=== PATIENT | female | born 1975 | race Caucasian/White ===

== ENCOUNTER → 2023-06-18 | Outpatient (CLI) | payer MEDICAID, SELFPAY ==
[2023-06-18 15:12] LABS: Absolute Lymphocyte Count 7.75 X10^3/uL (0.83-4.51); Absolute Neutrophil Count 14.3 X10^3/uL (2.0-7.7); Basophil# 0.14 X10^3/uL; Basophil% 0.6 % (0-1); Eosinophils% 1.2 % (0-5); Hematocrit 30.2 % (37-47); Hemoglobin 8.1 g/dL (12.0-15.0); Lymphocyte # 7.75 X10^3/ul (0.83-4.51); Lymphocyte % 32.3 % (19-41); Mean Corp Hgb Conc 26.8 g/dL (32-36); Mean Corpuscular Hgb 17.9 pg (27.0-32.0); Mean Corpuscular Volume 66.8 fL (81-99); Mean Platelet Vol. 9.2 fl (6.2-12.0); Monocyte# 1.37 X10^3/uL; Monocyte% 5.7 % (0-10); NRBC Flagged by Analyzer 0.5 % (0-5); Neutrophil # 14.27 X10^3/uL (2.7-7.7); Neutrophil % 59.5 % (47-70); POSITIVE COUNT YES; POSITIVE DIFFERENTIAL YES; POSITIVE MORPHOLOGY YES; RBC Distribution Width CV 22.9 % (11.6-14.6); RBC Distribution Width SD 52.2 fl (35.1-43.9); Red Blood Count 4.52 M/mm3 (4.2-5.4)
[2023-06-18 15:19] LABS: Differential Indicated SCAN CRITERIA MET; Platelet Count 1133 K/mm3 (150-450)
[2023-06-18 15:53] LABS: Differential Comment SEE COMMENTS
[2023-06-18 15:54] LABS: Anisocytosis 1+; Atypical Lymphocyte 1+ %; Hypochromasia 1+; Microcytosis 1+; Platelet Estimate MKD INC (ADEQ); Red Cell Morphology N CHROM NORMAL (NORM C&C)
[2023-06-18 15:55] LABS: Ovalocyte RARE
[2023-06-18 16:01] LABS: Vitamin D,25 Hydroxy 34.4 ng/mL
[2023-06-18 16:05] LABS: Hemoglobin A1c 7.4 % (3.8-5.6)
[2023-06-18 17:44] LABS: ALB/GLOB Ratio 0.8 RATIO (0.9-2.4); AST(SGOT) 22 U/L (15-37); Alanine Aminotransfer ALT/SGPT 19 U/L (13-56); Albumin, Serum 3.3 g/dL (3.2-5.0); Alkaline Phosphatase 139 U/L (45-117); Anion Gap 9 (5-15); BUN 13 mg/dL (7-18); BUN/Creat Ratio 16.3 RATIO (10-20); Calcium,Total 8.9 mg/dL (8.5-10.1); Chloride 101 mmol/L (98-107); Cholesterol 156 mg/dL (200); EST Glomerular Filtration Rate 81 mL/min (>60); Est Glom Filt Rate - Afr Amer 98 mL/min (>60); Globulin 4.4 g/dL (2.2-4.2); Glucose 159 mg/dL (74-106); High Density Lipoprotein 42 mg/dL; Potassium 4.8 mmol/L (3.5-5.1); Protein, Total 7.7 g/dL (6.4-8.2); Sodium Level 136 mmol/L (136-145); Triglycerides 210 mg/dL; Very Low Density Lipoprotein 42 mg/dL (5-40)
[2023-06-22 08:11] LABS: Pathologist Review Reviewed
== END | disposition home or self-care (01) ==
LOC: MTLAB 12:02
PROVIDERS: PCP Family Medicine; Referring Provider Family Medicine; Visit Provider Family Medicine
DX: E11.40 Type 2 diabetes mellitus with diabetic neuropathy, unspecified (principal); I48.91 Unspecified atrial fibrillation; G62.9 Polyneuropathy, unspecified
CPT/HCPCS: 36415; 80053; 80061; 82306; 83036; 85025

== ENCOUNTER → 2023-10-14 | Outpatient (CLI) | payer MEDICAID, SELFPAY ==
[2023-10-14 17:45] LABS: Absolute Neutrophil Count 10.4 X10^3/uL (2.0-7.7); Basophil% 0.5 % (0-1); Eosinophil# 0.38 X10^3/uL; Eosinophils% 1.8 % (0-5); Hematocrit 33.7 % (37-47); Hemoglobin 9.8 g/dL (12.0-15.0); Lymphocyte % 42.6 % (19-41); Mean Corp Hgb Conc 29.1 g/dL (32-36); Mean Corpuscular Hgb 21.2 pg (27.0-32.0); Mean Corpuscular Volume 72.8 fL (81-99); Mean Platelet Vol. 9.6 fl (6.2-12.0); Monocyte# 1.12 X10^3/uL; Monocyte% 5.3 % (0-10); NRBC Flagged by Analyzer 0.1 % (0-5); Neutrophil # 10.44 X10^3/uL (2.7-7.7); Neutrophil % 49.4 % (47-70); POSITIVE DIFFERENTIAL YES; POSITIVE MORPHOLOGY YES; Platelet Count 724 K/mm3 (150-450); RBC Distribution Width CV 29.7 % (11.6-14.6); RBC Distribution Width SD 73.2 fl (35.1-43.9); Red Blood Count 4.63 M/mm3 (4.2-5.4); White Blood Count 21.1 K/mm3 (4.4-11.0)
[2023-10-14 17:48] LABS: Differential Indicated SCAN CRITERIA MET
[2023-10-14 18:03] LABS: ALB/GLOB Ratio 0.6 RATIO (0.9-2.4); AST(SGOT) 21 U/L (15-37); Alanine Aminotransfer ALT/SGPT 17 U/L (13-56); Albumin, Serum 3.1 g/dL (3.2-5.0); Alkaline Phosphatase 134 U/L (45-117); Anion Gap 8 (5-15); BUN 7 mg/dL (7-18); BUN/Creat Ratio 10.4 RATIO (10-20); Calcium,Total 8.9 mg/dL (8.5-10.1); Chloride 99 mmol/L (98-107); Creatinine, Serum 0.68 mg/dL (0.55-1.02); EST Glomerular Filtration Rate 98 mL/min (>60); Est Glom Filt Rate - Afr Amer 119 mL/min (>60); Ferritin 21 ng/mL (8-252); Globulin 4.8 g/dL (2.2-4.2); Glucose 168 mg/dL (74-106); Hemoglobin A1c 7.6 % (3.8-5.6); Iron 36 ug/dL (50-170); Iron Binding Capacity,Total 415 ug/dL (250-450); PERCENT IRON SATURATION 8.7 % (15.0-55.0); Potassium 3.6 mmol/L (3.5-5.1); Protein, Total 7.9 g/dL (6.4-8.2); Sodium Level 134 mmol/L (136-145); Thyroid Stim Hormone (TSH) 3.23 uIU/mL (0.358-3.74)
[2023-10-14 18:43] LABS: Atypical Lymphocyte 1+ %; Differential Comment SEE COMMENTS
[2023-10-14 18:44] LABS: Anisocytosis 1+; Microcytosis 1+; Platelet Estimate MKD INC (ADEQ); Red Cell Morphology N CHROM NORMAL (NORM C&C)
== END | disposition home or self-care (01) ==
LOC: MFPLAB 16:55
PROVIDERS: PCP Family Medicine; Visit Provider Family Medicine
DX: R63.5 Abnormal weight gain (principal); E11.40 Type 2 diabetes mellitus with diabetic neuropathy, unspecified; Z86.2 Personal history of diseases of the blood and blood-forming organs and certain disorders involving the immune mechanism
CPT/HCPCS: 36415; 80053; 82728; 83036; 83540; 83550; 84443; 85025

== ENCOUNTER 2024-07-11 19:15 | Emergency (ER) | payer MEDICAID, SELFPAY ==
[2024-07-11 19:17] VITALS: BP 188/94; PULSE 84; RESP 20; TEMP 36.9; O2SAT 95
[2024-07-11 19:19] VITALS: BP 188/94; PULSE 84; RESP 20; TEMP 36.9; O2SAT 95
[2024-07-11 22:56] VITALS: BP 162/82; PULSE 90; RESP 19; O2SAT 99
--- NOTE | 2024-07-11 22:57 | ED.RN ---
delay in vital signs due to busy triage
[2024-07-11 23:00] VITALS: BP 162/82; PULSE 82; RESP 16; TEMP 36.9; O2SAT 98
[2024-07-11 23:31] VITALS: BMI 51.3
[2024-07-12] VITALS (7 sets, daily range): BP systolic 113–159; BP diastolic 49–62; PULSE 78–90; RESP 14–18; TEMP 36.6–36.8; O2SAT 97–99
--- NOTE | 2024-07-12 00:03 | EDS_ITS ---
HPI <Dr. González Barker MD - Last Filed: 07/16/24 10:15> History of Present Illness Chief Complaint: Complaint Detail of Chief Complaint: Fever and chills with urinary tract infection Informant: patient Onset/Context/Timing Onset: Days Context: Sudden Onset Timing: Continuous Quality: Dysuria, frequency lower abdominal pain with fever greater than 101.0 ? F Location: lower abdomen Current Severity: Mild Maximum Severity: Moderate Worsened by: Movement Relieved by: Nothing Associated Symptoms Associated Symptoms: nausea Narrative Narrative: Patient is a 48-year-old woman. This is her fourth UTI in 4 months. She presents with dysuria, frequency back pain and temperature of 101.0 ?F. She has had a colonoscopy. She does not recall whether she had diverticulosis or not. She denies pneumaturia. She does endorse nausea. She has had no vomiting or diarrhea. There is no history of trauma. She has chronic respiratory failure on oxygen at by nasal cannula at 4 L/min. She has allergy to sulfa. She denies allergies to pain medicine. She does not want any opiates since she has history of drug addiction. She requested Toradol. Patient has history of COVID x 3. She has respiratory failure due to pulmonary embolus and reason for chronic oxygen. 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 Prior similar symptoms: Yes Recent Illness/Hospitalization: Yes [facility] <Dr. González Barker MD - Last Filed: 07/16/24 10:15> [facility] Medical History Wheelchair dependence Supplemental oxygen dependent History of COVID-19 Heart valve vegetation Hx of pulmonary embolus Home Medications ?Medication ?Instructions ?Recorded ?Last Taken ?Type alprazolam 0.5 mg tablet 0.5 - 1 mg PO DAILY PRN anxiety 07/11/24 Unknown History apixaban 5 mg tablet (Eliquis) 5 mg PO BID 07/11/24 Unknown History atorvastatin 20 mg tablet 20 mg PO QHS 07/11/24 Unknown History cefdinir 300 mg capsule 300 mg PO BID 07/11/24 Unknown History escitalopram oxalate 10 mg tablet 20 mg PO QDAY 07/11/24 Unknown History (Lexapro) ferrous sulfate 325 mg (65 mg 325 mg PO QODAY 07/11/24 Unknown History iron) tablet (FeroSul) gabapentin 600 mg tablet 300 mg PO TID 07/11/24 Unknown History metformin 1,000 mg tablet 1,000 mg PO BID 07/11/24 Unknown History metoprolol succinate 25 mg 25 mg PO BID 07/11/24 Unknown History tablet,extended release 24 hr omeprazole 40 mg capsule,delayed 40 mg PO DAILY 07/11/24 Unknown History release ondansetron HCl 4 mg tablet 4 mg PO TID PRN 07/11/24 Unknown History terbinafine HCl 250 mg tablet 250 mg PO DAILY 07/11/24 Unknown History tizanidine 4 mg capsule (Zanaflex) 4 mg PO QHS 07/11/24 Unknown History Allergy/AdvReac Type Severity Reaction Status Date / Time Sulfa (Sulfonamide Allergy Severe Anaphylaxis Verified 07/11/24 19:16 Antibiotics) metoclopramide (From Reglan) AdvReac Intermediate Other Verified 07/11/24 19:16 prochlorperazine (From AdvReac Intermediate Other Verified 07/11/24 19:16 Compazine) Surgical History Hx of appendectomy Hx of splenectomy Social History Smoking Status: Current every day smoker tobacco type: e-cigarettes ROS <Dr. González Barker MD - Last Filed: 07/16/24 10:15> ROS ED Constitutional Constitutional ED: Reports chills and fever(s); Denies subjective or sweats Eyes Eyes: Denies blurry vision or change in vision ENT ENT ED: Denies rhinorrhea or sore throat Cardiovascular Cardiovascular: Denies chest pain or palpitations Respiratory/Chest Respiratory/Chest: Denies cough, dyspnea or dyspnea on exertion Gastrointestinal Gastrointestinal: Reports abdominal pain and nausea; Denies diarrhea or vomiting Genitourinary Genitourinary ED: Reports dysuria and urinary frequency; Denies hematuria Musculoskeletal Musculoskeletal: Reports back pain; Denies arthralgias, myalgias or neck pain Integumentary Denies abscess, Abrasions or rash Neurologic Neurologic: Denies headache(s) or paresthesias Endocrine Endocrinology: Denies cold intolerance or heat intolerance Hematologic/Lymphatic Hematologic/Lymphatic: Reports as per HPI EXAM <Dr. González Barker MD - Last Filed: 07/16/24 10:15> Physical Exam Const Vital Signs: 07/11/24 19:17 07/11/24 19:19 07/11/24 22:56 Temperature 98.5 F 98.5 F Temperature Source Oral Oral Pulse Rate 84 84 90 Respiratory Rate 20 H 20 H 19 H Blood Pressure 188/94 H 188/94 H 162/82 H Blood Pressure Mean 125 125 108 Pulse Ox 95 95 99 Oxygen Delivery Method Nasal Cannula Nasal Cannula Nasal Cannula Oxygen Flow Rate (L/min) 4 4 4 07/11/24 23:00 07/12/24 00:00 07/12/24 01:00 Temperature 98.5 F 98.2 F 97.8 F Temperature Source Oral Oral Oral Pulse Rate 82 85 86 Respiratory Rate 16 16 18 Blood Pressure 162/82 H 159/60 H 126/53 H Blood Pressure Mean 108 93 77 Pulse Ox 98 98 98 Oxygen Delivery Method Nasal Cannula Nasal Cannula Nasal Cannula Oxygen Flow Rate (L/min) 4 3 3 07/12/24 02:00 07/12/24 04:00 07/12/24 06:00 Temperature Temperature Source Pulse Rate 86 78 86 Respiratory Rate 14 18 18 Blood Pressure 113/49 L 114/54 L 117/52 L Blood Pressure Mean 70 74 73 Pulse Ox 98 98 97 Oxygen Delivery Method Room Air Room Air Nasal Cannula Oxygen Flow Rate (L/min) 3 07/12/24 08:24 Temperature Temperature Source Pulse Rate 86 Respiratory Rate 16 Blood Pressure 138/58 H Blood Pressure Mean 84 Pulse Ox 99 Oxygen Delivery Method Room Air Oxygen Flow Rate (L/min) Positive well nourished and well developed Constitutional Narrative: Patient appears uncomfortable. BMI is 51.3. General Appearance ED: well developed and pallor HEENT Reports dry mucous membranes HEENT Narrative: Head is atraumatic, cephalic. Ears normal. Nares patent. Posterior pharynx is normal. Mouth ED: Yes dry mucous membranes Mouth: dry mucous membranes Eyes PERRL and EOMs intact bilaterally General Eye ED: Negative for pale conjunctiva or scleral icterus Neck no lymphadenopathy, supple and no JVD Chest Wall inspection of chest normal and palpation of chest normal Resp normal respiratory effort and clear to auscultation bilaterally Cardio regular rate, regular rhythm, S1 normal heart sound, S2 normal heart sound and no murmurs GI normal to inspection, nondistended, normoactive bowel sounds, non-distended and no masses; Negative for non-tender or hepatosplenomegaly Auscultation: hypoactive bowel sounds Palpation: soft and tender RLQ and suprapubic Back/Spine General Back: CVA tenderness bilateral Thoracic Spine / Upper Back: Negative for thoracic spinal tenderness Lumbar Spine / Lower Back: Negative for lumbar spinal tenderness Extremity General Extremety ED: Negative for tenderness Neuro oriented x3 and CN's II-XII intact bilaterally Sensorium / Orientation: alert Psych mental status grossly normal Skin no rashes or lesions noted, no wounds and skin turgor normal General Skin Exam: pallor; Negative for jaundice <Dr. Mikel Valdivia MD - Last Filed: 07/12/24 03:22> Physical Exam Const Vital Signs: 07/11/24 19:17 07/11/24 19:19 07/11/24 22:56 Temperature 98.5 F 98.5 F Temperature Source Oral Oral Pulse Rate 84 84 90 Respiratory Rate 20 H 20 H 19 H Blood Pressure 188/94 H 188/94 H 162/82 H Blood Pressure Mean 125 125 108 Pulse Ox 95 95 99 Oxygen Delivery Method Nasal Cannula Nasal Cannula Nasal Cannula Oxygen Flow Rate (L/min) 4 4 4 07/11/24 23:00 07/12/24 00:00 07/12/24 01:00 Temperature 98.5 F 98.2 F 97.8 F Temperature Source Oral Oral Oral Pulse Rate 82 85 86 Respiratory Rate 16 16 18 Blood Pressure 162/82 H 159/60 H 126/53 H Blood Pressure Mean 108 93 77 Pulse Ox 98 98 98 Oxygen Delivery Method Nasal Cannula Nasal Cannula Nasal Cannula Oxygen Flow Rate (L/min) 4 3 3 07/12/24 02:00 07/12/24 04:00 07/12/24 06:00 Temperature Temperature Source Pulse Rate 86 78 86 Respiratory Rate 14 18 18 Blood Pressure 113/49 L 114/54 L 117/52 L Blood Pressure Mean 70 74 73 Pulse Ox 98 98 97 Oxygen Delivery Method Room Air Room Air Nasal Cannula Oxygen Flow Rate (L/min) 3 07/12/24 08:24 Temperature Temperature Source Pulse Rate 86 Respiratory Rate 16 Blood Pressure 138/58 H Blood Pressure Mean 84 Pulse Ox 99 Oxygen Delivery Method Room Air Oxygen Flow Rate (L/min) <Dr. Jim Ha DO - Last Filed: 07/12/24 08:47> Physical Exam Const Vital Signs: 07/11/24 19:17 07/11/24 19:19 07/11/24 22:56 Temperature 98.5 F 98.5 F Temperature Source Oral Oral Pulse Rate 84 84 90 Respiratory Rate 20 H 20 H 19 H Blood Pressure 188/94 H 188/94 H 162/82 H Blood Pressure Mean 125 125 108 Pulse Ox 95 95 99 Oxygen Delivery Method Nasal Cannula Nasal Cannula Nasal Cannula Oxygen Flow Rate (L/min) 4 4 4 07/11/24 23:00 07/12/24 00:00 07/12/24 01:00 Temperature 98.5 F 98.2 F 97.8 F Temperature Source Oral Oral Oral Pulse Rate 82 85 86 Respiratory Rate 16 16 18 Blood Pressure 162/82 H 159/60 H 126/53 H Blood Pressure Mean 108 93 77 Pulse Ox 98 98 98 Oxygen Delivery Method Nasal Cannula Nasal Cannula Nasal Cannula Oxygen Flow Rate (L/min) 4 3 3 07/12/24 02:00 07/12/24 04:00 07/12/24 06:00 Temperature Temperature Source Pulse Rate 86 78 86 Respiratory Rate 14 18 18 Blood Pressure 113/49 L 114/54 L 117/52 L Blood Pressure Mean 70 74 73 Pulse Ox 98 98 97 Oxygen Delivery Method Room Air Room Air Nasal Cannula Oxygen Flow Rate (L/min) 3 07/12/24 08:24 Temperature Temperature Source Pulse Rate 86 Respiratory Rate 16 Blood Pressure 138/58 H Blood Pressure Mean 84 Pulse Ox 99 Oxygen Delivery Method Room Air Oxygen Flow Rate (L/min) [facility] <Dr. González Barker MD - Last Filed: 07/16/24 10:15> [facility] Narrative Medical decision making narrative: Need to evaluate for complicated UTI, pyelonephritis, diverticular abscess with possible fistula since she has had multiple recurrent urinary tract infections. To evaluate this CBC, BMP UA was obtained. Cath urine was ordered. CT of the abdomen was obtained to assess for abscess. History & Record Review Additional record(s) reviewed:: Prior inpatient record (Records from outside facility indicates patient had endocarditis from dental infection requiring extraction of teeth while she was hospitalized. She also was admitted for multiple pulmonary embolus due to COVID.) and No prior records Lab Data Attestation: I reviewed the patient's lab results. Lab results narrative: Electrolyte panel reveals mild hyponatremia and hypochloremia. Glucose is elevated to 51 with a normal CO2 anion gap. Lactate is elevated 2.5. Liver enzymes are unremarkable. Patient's lactic acidosis could be due to metformin. Labs: Laboratory Results - last 24 hr 07/11/24 07/12/24 07/12/24 23:50 00:04 04:14 WBC 25.5 H RBC 4.21 Hgb 11.1 L Hct 35.0 L MCV 83.1 MCH 26.4 L MCHC 31.7 L RDW Std Deviation 45.6 H RDW Coeff of Andrés 15.0 H Plt Count 592 H MPV 9.8 Immature Gran % (Auto) 0.600 Neut % (Auto) 50.6 Lymph % (Auto) 40.9 [place] % (Auto) 6.4 Eos % (Auto) 1.1 Baso % (Auto) 0.4 Absolute Neuts (auto) 12.9 H Absolute Lymphs (auto) 10.42 H Nucleated RBC % 0.1 Differential Comment SCANNED Diff Path Review May foll Hypersegmented Neuts 1+ H Reactive Lymphocytes 3+ Platelet Estimate SLT INC Polychromasia 1+ Anisocytosis 1+ Sodium 131 L Potassium 3.8 Chloride 94 L Carbon Dioxide 27.0 Anion Gap 10 BUN 10 Creatinine 0.73 Estim Creat Clear Calc 131.23 Est GFR (MDRD) Af Amer 108 Est GFR (MDRD) Non-Af 89 BUN/Creatinine Ratio 13.7 Glucose 251 H Lactic Acid 2.5 H* 1.7 Calcium 8.8 Total Bilirubin 0.40 AST 29 ALT 15 Alkaline Phosphatase 124 H Total Protein 7.8 Albumin 3.2 Globulin 4.6 H Albumin/Globulin Ratio 0.7 L Urine Color Yellow Urine Clarity Clear Urine pH 6.0 Ur Specific [place] 1.015 Urine Protein 30 H Urine Glucose (UA) Normal Urine Ketones 5 H Urine Occult Blood Negative Urine Nitrite Negative Urine Bilirubin 1 H Urine Urobilinogen 1 H Ur Leukocyte Esterase 25 H Urine RBC 0 SEEN Urine WBC 5-10 SEEN Ur Squamous Epith Cells 5-10 SEEN Urine Bacteria RARE Urine Mucus 4+ Radiography Diagnostic Testing: Clinical Impression(s) from Imaging Studies Transvaginal US 07/12/24 03:18 IMPRESSION: Normal-appearing uterus. Nonvisualized ovaries. Electronically Signed: Eloy Nickerson MD at 8:27 EST , Abdomen/Pelvis CT 07/12/24 23:23 IMPRESSION: 1. No acute intra-abdominal abnormality 2. Fatty infiltration of the liver. 3. Shotty periportal lymph nodes. Electronically Signed: Jose Gannon MD at 1:43 EST , Treatment and Re-Evaluation :: Patient's history physical was discussed with the evening physician. Dispositio n to be made after CT of the abdomen pelvis with has been performed and interpreted by radiologist. Nurse was reminded that straight cath was ordered to obtain urine specimen. <Dr. Mikel Valdivia MD - Last Filed: 07/12/24 03:22> [facility] Lab Data Labs: Laboratory Results - last 24 hr 07/11/24 07/12/24 07/12/24 23:50 00:04 04:14 WBC 25.5 H RBC 4.21 Hgb 11.1 L Hct 35.0 L MCV 83.1 MCH 26.4 L MCHC 31.7 L RDW Std Deviation 45.6 H RDW Coeff of Andrés 15.0 H Plt Count 592 H MPV 9.8 Immature Gran % (Auto) 0.600 Neut % (Auto) 50.6 Lymph % (Auto) 40.9 [place] % (Auto) 6.4 Eos % (Auto) 1.1 Baso % (Auto) 0.4 Absolute Neuts (auto) 12.9 H Absolute Lymphs (auto) 10.42 H Nucleated RBC % 0.1 Differential Comment SCANNED Diff Path Review May foll Hypersegmented Neuts 1+ H Reactive Lymphocytes 3+ Platelet Estimate SLT INC Polychromasia 1+ Anisocytosis 1+ Sodium 131 L Potassium 3.8 Chloride 94 L Carbon Dioxide 27.0 Anion Gap 10 BUN 10 Creatinine 0.73 Estim Creat Clear Calc 131.23 Est GFR (MDRD) Af Amer 108 Est GFR (MDRD) Non-Af 89 BUN/Creatinine Ratio 13.7 Glucose 251 H Lactic Acid 2.5 H* 1.7 Calcium 8.8 Total Bilirubin 0.40 AST 29 ALT 15 Alkaline Phosphatase 124 H Total Protein 7.8 Albumin 3.2 Globulin 4.6 H Albumin/Globulin Ratio 0.7 L Urine Color Yellow Urine Clarity Clear Urine pH 6.0 Ur Specific [place] 1.015 Urine Protein 30 H Urine Glucose (UA) Normal Urine Ketones 5 H Urine Occult Blood Negative Urine Nitrite Negative Urine Bilirubin 1 H Urine Urobilinogen 1 H Ur Leukocyte Esterase 25 H Urine RBC 0 SEEN Urine WBC 5-10 SEEN Ur Squamous Epith Cells 5-10 SEEN Urine Bacteria RARE Urine Mucus 4+ Radiography Diagnostic Testing: Clinical Impression(s) from Imaging Studies Transvaginal US 07/12/24 03:18 IMPRESSION: Normal-appearing uterus. Nonvisualized ovaries. Electronically Signed: Eloy Nickerson MD at 8:27 EST , Abdomen/Pelvis CT 07/12/24 23:23 IMPRESSION: 1. No acute intra-abdominal abnormality 2. Fatty infiltration of the liver. 3. Shotty periportal lymph nodes. Electronically Signed: Jose Gannon MD at 1:43 EST , Treatment and Re-Evaluation Comments:: Patient turned over to me at shift change. Her CT and urine resulted, as well as her CBC. I reviewed all of these. This includes the CT images as well as the report which I agree with. It is basically normal. However her white blood count is over 25, but she has always had white blood count readings in the 20s. Her urine does not appear consistent with infection. I sat and discussed with the patient for quite a while. She states she had of splenectomy and also had a recent positive INES and is scheduled to follow-up with a store grocery merchandiser, her white blood counts have been high most of the time and may be related to 1 or more of these. Alternatively, it could be elevated due to an acute infection especially because she was having fevers. Initially I was thinking her urine could be a false negative with acute urinary symptoms and fevers, however my thoughts on this changed when she told me more details about her symptoms which have basically been there for a month or 2, she is currently on her third course of antibiotics for the same urinary infection, currently on cefdinir and before that she was on nitrofurantoin and Augmentin, and with her urinalysis appearing unremarkable, I think it is less likely to be a false negative. She states the Toradol really helped her pain she is asking for some more, it has been about 3-1/2 hours so I am going to give her another half dose. Her pain is low right lower quadrant/suprapubic. There is no inflammation in the pelvis on the CT, but we are considering pelvic etiologies such as tubo- ovarian abscess, less likely to be ovarian torsion given the fever and chills, and the fact that she has had this pain for over a week although it got worse tonight, and ultrasound is not here right now but I offered to have her stay for the next for 5 hours until ultrasound arrives in the morning and have that performed. She is amenable to that. <Dr. Jim Ha, DO - Last Filed: 07/12/24 08:47> [facility] Lab Data Labs: Laboratory Results - last 24 hr 07/11/24 07/12/24 07/12/24 23:50 00:04 04:14 WBC 25.5 H RBC 4.21 Hgb 11.1 L Hct 35.0 L MCV 83.1 MCH 26.4 L MCHC 31.7 L RDW Std Deviation 45.6 H RDW Coeff of Andr[place] 15.0 H Plt Count 592 H MPV 9.8 Immature Gran % (Auto) 0.600 Neut % (Auto) 50.6 Lymph % (Auto) 40.9 [place] % (Auto) 6.4 Eos % (Auto) 1.1 Baso % (Auto) 0.4 Absolute Neuts (auto) 12.9 H Absolute Lymphs (auto) 10.42 H Nucleated RBC % 0.1 Differential Comment SCANNED Diff Path Review May foll Hypersegmented Neuts 1+ H Reactive Lymphocytes 3+ Platelet Estimate SLT INC Polychromasia 1+ Anisocytosis 1+ Sodium 131 L Potassium 3.8 Chloride 94 L Carbon Dioxide 27.0 Anion Gap 10 BUN 10 Creatinine 0.73 Estim Creat Clear Calc 131.23 Est GFR (MDRD) Af Amer 108 Est GFR (MDRD) Non-Af 89 BUN/Creatinine Ratio 13.7 Glucose 251 H Lactic Acid 2.5 H* 1.7 Calcium 8.8 Total Bilirubin 0.40 AST 29 ALT 15 Alkaline Phosphatase 124 H Total Protein 7.8 Albumin 3.2 Globulin 4.6 H Albumin/Globulin Ratio 0.7 L Urine Color Yellow Urine Clarity Clear Urine pH 6.0 Ur Specific [place] 1.015 Urine Protein 30 H Urine Glucose (UA) Normal Urine Ketones 5 H Urine Occult Blood Negative Urine Nitrite Negative Urine Bilirubin 1 H Urine Urobilinogen 1 H Ur Leukocyte Esterase 25 H Urine RBC 0 SEEN Urine WBC 5-10 SEEN Ur Squamous Epith Cells 5-10 SEEN Urine Bacteria RARE Urine Mucus 4+ Radiography Diagnostic Testing: Clinical Impression(s) from Imaging Studies Transvaginal US 07/12/24 03:18 IMPRESSION: Normal-appearing uterus. Nonvisualized ovaries. Electronically Signed: Eloy Nickerson MD at 8:27 EST , Abdomen/Pelvis CT 07/12/24 23:23 IMPRESSION: 1. No acute intra-abdominal abnormality 2. Fatty infiltration of the liver. 3. Shotty periportal lymph nodes. Electronically Signed: Jose Gannon MD at 1:43 EST , Treatment and Re-Evaluation Comments:: Patient turned over to me at shift change. Her CT and urine resulted, as well as her CBC. I reviewed all of these. This includes the CT images as well as the report which I agree with. It is basically normal. However her white blood count is over 25, but she has always had white blood count readings in the 20s. Her urine does not appear consistent with infection. I sat and discussed with the patient for quite a while. She states she had of splenectomy and also had a recent positive INES and is scheduled to follow-up with a store grocery merchandiser, her white blood counts have been high most of the time and may be related to 1 or more of these. Alternatively, it could be elevated due to an acute infection especially because she was having fevers. Initially I was thinking her urine could be a false negative with acute urinary symptoms and fevers, however my thoughts on this changed when she told me more details about her symptoms which have basically been there for a month or 2, she is currently on her third course of antibiotics for the same urinary infection, currently on cefdinir and before that she was on nitrofurantoin and Augmentin, and with her urinalysis appearing unremarkable, I think it is less likely to be a false negative. She states the Toradol really helped her pain she is asking for some more, it has been about 3-1/2 hours so I am going to give her another half dose. Her pain is low right lower quadrant/suprapubic. There is no inflammation in the pelvis on the CT, but we are considering pelvic etiologies such as tubo- ovarian abscess, less likely to be ovarian torsion given the fever and chills, and the fact that she has had this pain for over a week although it got worse tonight, and ultrasound is not here right now but I offered to have her stay for the next for 5 hours until ultrasound arrives in the morning and have that performed. She is amenable to that. Care of the patient was turned over to me pending ultrasound results. Patient went for pelvic ultrasound. There is no acute abnormality noted. The ovaries were not visualized. Patient was advised of her findings. Patient is resting comfortably on reevaluation. Patient was instructed to follow-up with her primary care physician in 3 to 5 days for further evaluation. Patient understood and was agreeable with the plan. All questions were answered. Discharge Plan Triage Chief Complaint: Complaint ED Provider: González Barker Dx/Rx/DC Orders Clinical Impression: Pelvic pain, Elevated blood pressure reading Instructions: ED Pelvic Pain, Unknown Cause Prescriptions: No Action tizanidine [Zanaflex] 4 mg capsule 4 mg PO QHS ferrous sulfate [FeroSul] 325 mg (65 mg iron) tablet 325 mg PO QODAY alprazolam 0.5 mg tablet 0.5 - 1 mg PO DAILY PRN (Reason: anxiety) cefdinir 300 mg capsule 300 mg PO BID terbinafine HCl 250 mg tablet 250 mg PO DAILY Eliquis 5 mg tablet 5 mg PO BID escitalopram oxalate [Lexapro] 10 mg tablet 20 mg PO QDAY gabapentin 600 mg tablet 300 mg PO TID ondansetron HCl 4 mg tablet 4 mg PO TID PRN omeprazole 40 mg capsule,delayed release(DR/EC) 40 mg PO DAILY metformin 1,000 mg tablet 1,000 mg PO BID metoprolol succinate 25 mg tablet extended release 24 hr 25 mg PO BID atorvastatin 20 mg tablet 20 mg PO QHS Primary Care Provider: Kerwin Pillai Referrals: Kerwin Pillai MD [Primary Care Provider] - 3-5 Days Print Language: Malagasy Disposition Disposition: Home, Self Care Discharge Date/Time: 07/12/24 08:58
[2024-07-12 00:09] LABS: Absolute Lymphocyte Count 10.42 X10^3/uL (0.83-4.51); Absolute Neutrophil Count 12.9 X10^3/uL (2.0-7.7); Basophil# 0.11 X10^3/uL; Basophil% 0.4 % (0-1); Eosinophil# 0.27 X10^3/uL; Eosinophils% 1.1 % (0-5); Hemoglobin 11.1 g/dL (12.0-15.0); Lymphocyte # 10.42 X10^3/ul (0.83-4.51); Lymphocyte % 40.9 % (19-41); Mean Corp Hgb Conc 31.7 g/dL (32-36); Mean Corpuscular Hgb 26.4 pg (27.0-32.0); Mean Corpuscular Volume 83.1 fL (81-99); Mean Platelet Vol. 9.8 fl (6.2-12.0); Monocyte# 1.62 X10^3/uL; Monocyte% 6.4 % (0-10); NRBC Flagged by Analyzer 0.1 % (0-5); Neutrophil # 12.88 X10^3/uL (2.7-7.7); Neutrophil % 50.6 % (47-70); POSITIVE DIFFERENTIAL YES; POSITIVE MORPHOLOGY YES; Platelet Count 592 K/mm3 (150-450); RBC Distribution Width SD 45.6 fl (35.1-43.9); Red Blood Count 4.21 M/mm3 (4.2-5.4); White Blood Count 25.5 K/mm3 (4.4-11.0)
[2024-07-12] MEDS: LORazepam 2 MG/ML Syringe 0.5 MG IV (00:20)
[2024-07-12] MEDS: Ketorolac 15 MG/ML Vial IV ×3 (00:20→07:39)
[2024-07-12 00:25] LABS: Lactic Acid 2.5 mmol/L (0.4-1.9)
[2024-07-12 00:31] LABS: ALB/GLOB Ratio 0.7 RATIO (0.9-2.4); AST(SGOT) 29 U/L (15-37); Alanine Aminotransfer ALT/SGPT 15 U/L (13-56); Albumin, Serum 3.2 g/dL (3.2-5.0); Alkaline Phosphatase 124 U/L (45-117); Anion Gap 10 (5-15); BUN 10 mg/dL (7-18); BUN/Creat Ratio 13.7 RATIO (10-20); Calcium,Total 8.8 mg/dL (8.5-10.1); Chloride 94 mmol/L (98-107); Creatinine, Serum 0.73 mg/dL (0.55-1.02); EST Glomerular Filtration Rate 89 mL/min (>60); Est Glom Filt Rate - Afr Amer 108 mL/min (>60); Estimated Creatinine Clearance 131.23 ml/min; Globulin 4.6 g/dL (2.2-4.2); Glucose 251 mg/dL (74-106); Potassium 3.8 mmol/L (3.5-5.1); Protein, Total 7.8 g/dL (6.4-8.2); Sodium Level 131 mmol/L (136-145)
[2024-07-12 00:36] LABS: Red Blood Cells-Urine 0 SEEN /hpf (0-5)
[2024-07-12 00:44] LABS: Color, Urine Yellow (Yellow); Glucose, Dipstick Normal (Normal); Ketone-Dipstick 5 mg/dl (Negative); Leukocyte Esterase-Dipstick 25 /ul (Negative); Nitrite-Dipstick Negative (Negative); Occult Blood-Urine Negative /ul (Negative); Protein-Dipstick 30 mg/dl (Negative); Specific Gravity, Urine 1.015 (1.002-1.030); Urine Clarity Clear (Clear); Urine Urobilinogen 1 mg/dl (Normal)
[2024-07-12 00:53] LABS: Mucous, Urine 4+ /hpf (<or=2+); Urine Bilirubin Dipstick 1 mg/dL (Negative)
[2024-07-12 00:54] LABS: Bacteria RARE /hpf (None Seen); Squamous Epithelial Cells - UA 5-10 SEEN /hpf (5-10); White Blood Cells 5-10 SEEN /hpf (0-5)
[2024-07-12 00:58] LABS: Differential Indicated SCAN CRITERIA MET
[2024-07-12 01:02] LABS: Differential Comment SCANNED; Reactive Lymphocyte 3+
[2024-07-12 01:03] LABS: Hypersegmented Neutrophils 1+; Platelet Estimate SLT INC (ADEQ)
[2024-07-12 01:04] LABS: Anisocytosis 1+; Polychromasia 1+
--- NOTE | 2024-07-12 03:18 | US_ITS ---
EXAM: US PELVIS TRANSVAGINAL CLINICAL INDICATION: right pelvic pain TECHNIQUE: Endovaginal pelvic ultrasound was performed with grayscale and color Doppler imaging. Endovaginal imaging was used for better evaluation of the endometrium and adnexa. COMPARISON: No relevant prior studies available. FINDINGS: UTERUS/CERVIX: Uterus measures 10.0 x 5.3 x 4.8 cm with endometrial thickness of 6 mm. Small nabothian cysts are seen. Neither ovary identified. FREE FLUID: None. US/Transvaginal Non- IMPRESSION: Normal-appearing uterus. Nonvisualized ovaries. Electronically Signed: Eloy Nickerson MD at 8:27 EST ,
[2024-07-12 04:05] LABS: Reflex Lactate? Y
[2024-07-12 04:45] LABS: Lactic Acid 1.7 mmol/L (0.4-1.9)
[2024-07-12 14:28] LABS: Pathologist Review Reviewed
--- NOTE | 2024-07-12 23:23 | CT_ITS ---
STUDY: CT ABDOMEN AND PELVIS WITH CONTRAST REASON FOR EXAM: Female, 48 years old. Current urinary tract infection RADIATION DOSAGE (If Supplied By Facility): CTDIvol = ( 22.07 ) mGy, DLP = ( 1384.27 ) mGycm TECHNIQUE: Spiral CT imaging of the abdomen and pelvis was performed with intravenous contrast material (100mL Isovue-370 / ), followed by coronal and sagittal reformatting. Individualized dose optimization techniques were used for this CT. COMPARISON: No relevant priors. FINDINGS: LOWER CHEST: Normal lung bases. Normal heart. Normal pericardium. LIVER: Mild diffuse homogeneous hypoattenuation of the liver parenchyma. GALLBLADDER AND BILIARY TREE: Normal gallbladder. Normal biliary ductal system. SPLEEN: Spleen is surgically absent. PANCREAS: Normal ADRENAL GLANDS: Normal KIDNEYS AND URETERS: Normal kidneys. Normal ureters. BOWEL: Normal stomach. Normal small bowel. Normal colon. PERITONEUM: No free intraperitoneal air or fluid. No intra-abdominal fluid collection. LYMPH NODES: Mildly prominent periportal lymph nodes. No retroperitoneal lymphadenopathy. No pelvic lymphadenopathy. VESSELS: Normal URINARY BLADDER: Normal REPRODUCTIVE ORGANS: Normal ABDOMINAL WALL: Normal BONES: Normal CT/Abdomen/Pelvis W IV Cont ONLY IMPRESSION: 1. No acute intra-abdominal abnormality 2. Fatty infiltration of the liver. 3. Shotty periportal lymph nodes. Electronically Signed: Jose Gannon MD at 1:43 EST ,
== END 2024-07-12 08:58 | disposition home or self-care (01) ==
PROVIDERS: Emergency Provider Emergency Medicine; PCP Family Medicine; Visit Provider Emergency Medicine
DX: R10.2 Pelvic and perineal pain (principal); J96.10 Chronic respiratory failure, unspecified whether with hypoxia or hypercapnia; R03.0 Elevated blood-pressure reading, without diagnosis of hypertension; R30.0 Dysuria; R76.0 Raised antibody titer; R11.0 Nausea; E87.1 Hypo-osmolality and hyponatremia; E87.8 Other disorders of electrolyte and fluid balance, not elsewhere classified; F17.290 Nicotine dependence, other tobacco product, uncomplicated; Z88.2 Allergy status to sulfonamides; Z86.16 Personal history of COVID-19; Z99.81 Dependence on supplemental oxygen; Z90.81 Acquired absence of spleen; Z90.49 Acquired absence of other specified parts of digestive tract; Z86.79 Personal history of other diseases of the circulatory system; Z79.84 Long term (current) use of oral hypoglycemic drugs; Z86.711 Personal history of pulmonary embolism; Z87.440 Personal history of urinary (tract) infections; Z79.01 Long term (current) use of anticoagulants; Z79.899 Other long term (current) drug therapy
CPT/HCPCS: 51701; 74177; 76830; 80053; 81001; 83605; 85025; 87040; 87086; 87088; 96374; 96375; 96376; 99284; P9612; Q9967; A4216